=== PATIENT | female | born 1990 | race Caucasian/White ===

== ENCOUNTER 2019-01-08 00:16 | Emergency (ER) | payer BC ==
[~2019-01-08] VITALS: Ht 165.1 cm; Wt 84.4 kg
[2019-01-08] MEDS ORDERED: [UNRECOGNIZED DRUG - OTHER] MC ONE (00:20)
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
[2019-01-08] MEDS ORDERED: SODIUM BICARBONATE 4.2 % (NEUT) 5 ML VIAL TP ONE (00:30)
[2019-01-08] MEDS ORDERED: TDAP DIPH,PERTUSS,TET VAC/PF 0.5 ML DISP.SYRIN IM ONE ×2 (00:30→01:05)
[2019-01-08] MEDS ORDERED: LIDOCAINE 1%-EPI 1:100,000 20 ML VIAL TP ONE (00:30)
[2019-01-08] MEDS ORDERED: NEOMY/BACITRA/POLYMYXIN B OINT UD PACKET TP ONE ×2 (00:30→01:04)
[2019-01-08] MEDS ORDERED: HYDROMORPHONE 1 MG/1 ML DISP.SYRIN IM ONE (00:30)
[2019-01-08] MEDS ORDERED: diphenhydrAMINE 50 MG/1 ML VIAL IM ONE (00:30)
[2019-01-08] MEDS ORDERED: CEFTRIAXONE 1 G VIAL IM ONE (00:30)
[2019-01-08] MEDS ORDERED: METOCLOPRAMIDE HCL 10 MG/2 ML VIAL IM ONE (00:30)
[2019-01-08] MEDS ORDERED: diphenhydrAMINE 50 MG/1 ML VIAL ONE (00:36)
[2019-01-08] MEDS ORDERED: METOCLOPRAMIDE HCL 10 MG/2 ML VIAL ONE (00:36)
[2019-01-08] MEDS ORDERED: HYDROMORPHONE 2 MG/1 ML DISP.SYRIN ONE (00:36)
--- NOTE | 2019-01-08 01:03 | NUR ---
CLEANED WOUNDS. PT NAD, ABLE TO TOLERATE MEDS ORDERED ORCHID SUPERINTENDENT AT BEDSIDE SIDERAILS UPX2 KEPT SAFE, REASSURED. KEPT WARM DRY AND COMFORTABLE
[2019-01-08] MEDS ORDERED: CEFTRIAXONE 1 G VIAL ONE (01:05)
--- NOTE | 2019-01-08 01:30 | NUR ---
MD AT BEDSIDE FOR SUTURE/ WOUND REPAIR, ALSO FOR DENTAL TEMP REPAIR OF THREE CHIPPED FRONT TEETH PT ABLE TO TOLERATE PROCEDURE. PT ALSO RECEIVED TDAP PT NAD, PAIN AT 2-4/10, FURTHER PHYS ASSESSMENT REVEALED NO OTHER ACUTE FX PT REASSURED, KEPT SAFE AND COMFORTABLE.
--- NOTE | 2019-01-08 02:18 | NUR ---
Patient discharged to home in stable conditon. Written and verbal after care instructions given. Patient verbalizes understanding of instructions. AMBULATORY WITH STEADY GAIT
[2019-01-08 02:19] VITALS: BP 121/84
== END 2019-01-08 02:19 | disposition home or self-care (01) ==
LOC: ER 00:19
DX: S02.5XXA Fracture of tooth (traumatic), initial encounter for closed fracture (principal); S01.81XA Laceration without foreign body of other part of head, initial encounter; W05.2XXA Fall from non-moving motorized mobility scooter, initial encounter; Y93.89 Activity, other specified; Y92.89 Other specified places as the place of occurrence of the external cause; Y99.8 Other external cause status
CPT/HCPCS: 12052; 70110; 90471; 90715; 96372 ×4; 99284; J0696; J1170; J1200; J2765; J3490 ×2; A4217; A4663